=== PATIENT | female | born 1955 | race Two or more races ===

== ENCOUNTER 2017-10-04 06:27 | Day surgery (SDC) | payer MEDICARE, MEDICAID ==
[2017-10-04] MEDS ORDERED: ONDANSETRON 4 MG/2 ML VIAL IV ONE (06:28)
[2017-10-04] MEDS ORDERED: IV NORMAL SALINE 1000 ML BAG IV ONE (06:28)
[2017-10-04] MEDS ORDERED: FLURBIPROFEN 0.03% OPHT DROP 2.5 ML BOTTLE ONE (06:50)
[2017-10-04] MEDS ORDERED: TETRACAINE HCL 0.5% OPHT DROP 2 ML BOTTLE ONE ×2 (06:50→07:25)
[2017-10-04] MEDS ORDERED: CIPROFLOXACIN 0.3% OPHT DROP 2.5 ML BOTTLE ONE (06:50)
[2017-10-04] MEDS ORDERED: CYCLOPENTOLATE 1% OPHT DROP 2 ML BOTTLE ONE (06:50)
[2017-10-04] MEDS ORDERED: PHENYLEPHRINE 2.5% OPHT DROP 2 ML BOTTLE ONE (06:51)
[2017-10-04 07:11] LABS: *BILIRUBIN,URIN NEGATIVE (NEGATIVE); *BLOOD, URINE Trace-lysed (NEGATIVE); *CLARITY,URINE CLEAR (CLEAR); *COLOR,URINE YELLOW (YELLOW); *KETONES,URINE NEGATIVE (NEGATIVE); *PROTEIN,URINE NEGATIVE (NEGATIVE); *UROBILINOGEN,URINE 0.2 E.U./dl (NORMAL); LEUKOCYTE ESTERASE ,URINE NEGATIVE (NEGATIVE); NITRITE, URINE NEGATIVE (NEGATIVE); PH,URINE 5.5 (5.0-8.0); UGLUCOSE NEGATIVE (NEGATIVE)
[2017-10-04 07:16] LABS: BASOPHILS # (AUTO) 0.1 K/uL (0.0-8.0); BASOPHILS % (AUTO) 1.4 % (0.0-2.0); EOSINOPHILS # (AUTO) 0.2 K/uL (0.0-0.7); EOSINOPHILS % (AUTO) 2.1 % (0.0-7.0); HEMATOCRIT 41.8 % (31.2-41.9); HEMOGLOBIN 14.2 g/dL (10.9-14.3); LYMPHOCYTES # (AUTO) 3.4 K/uL (20.0-40.0); LYMPHOCYTES % (AUTO) 37.6 % (20.5-51.5); MEAN CORPUSCULAR HEMOGLOBIN 28.1 uug (24.7-32.8); MEAN CORPUSCULAR HGB CONC 34 g/dL (32.3-35.6); MONOCYTES # (AUTO) 0.7 K/uL (2.0-10.0); NEUTROPHILS # (AUTO) 4.6 K/uL (1.8-8.9); NEUTROPHILS % (AUTO) 50.9 % (38.5-71.5); PLATELET COUNT (AUTO) 285 K/uL (179-408); RED BLOOD CELL COUNT(AUTO) 5.04 MIL/uL (3.63-4.92); WHITE BLOOD COUNT (AUTO) 9.1 K/uL (3.8-11.8)
[2017-10-04 07:19] LABS: CREATININE 0.8 mg/dL (0.6-1.3); POTASSIUM 4.1 mmol/L (3.5-5.1)
[2017-10-04 07:22] LABS: BACTERIA,URINE MODERATE /HPF (NONE SEEN); RBC,URINE 0-3 /HPF (0-3); SQUAMOUS EPITHELIAL CELL,UR MODERATE /HPF (NONE SEEN); WBC,URINE 0-3 /HPF (0-3)
[2017-10-04] MEDS ORDERED: NEO/POLYMYX B/DEXAME OPHT OINT 3.5 GM TUBE ONE (07:25)
[2017-10-04] MEDS ORDERED: PILOCARPINE 1% OPHT DROP 15 ML BOTTLE ONE (07:25)
[2017-10-04] MEDS ORDERED: BALANCED SALT IRRIG SOLN COMB2 15 ML IRRIG.SOLN ONE (07:25)
[2017-10-04] MEDS ORDERED: LIDOCAINE HCL-MPF 1% 5 ML VIAL ONE (07:25)
[2017-10-04] MEDS ORDERED: EPINEPHRINE 1 MG/1 ML AMP ONE (07:25)
[2017-10-04] MEDS ORDERED: HYALURONATE SODIUM 8.5 MG/0.85 ML DISP.SYRIN ONE ×2 (07:26→09:13)
[2017-10-04] MEDS ORDERED: BUPIVACAINE PF 0.5% 30 ML VIAL ONE (07:26)
[2017-10-04] MEDS ORDERED: BALANCED SALT IRRIG SOLN COMB1 500 ML, EPINEPHRINE-PF 1:1000 1 MG IO ONE ×2 (08:00)
[2017-10-04] MEDS ORDERED: MIDAZOLAM HCL 2 MG/2 ML VIAL ONE ×2 (08:42→09:02)
[2017-10-04] MEDS ORDERED: FENTANYL CITRATE 100 MCG/2 ML AMPUL ONE (08:42)
[2017-10-04] MEDS ORDERED: ACETAMINOPHEN 325 MG TABLET ONE (09:55)
== END 2017-10-04 10:05 | disposition home or self-care (01) ==
LOC: DS 06:27
PROVIDERS: ATTEND Dermatology MOHS-Micrographic Surgery
DX: H25.89 Other age-related cataract (principal); I10 Essential (primary) hypertension; F41.9 Anxiety disorder, unspecified; F32.9 Major depressive disorder, single episode, unspecified; Z98.890 Other specified postprocedural states; Z90.49 Acquired absence of other specified parts of digestive tract; Z90.710 Acquired absence of both cervix and uterus
CPT/HCPCS: 36415; 66984; 71045; 80048; 81001; 85025; 85730; 93005; A4663; J0171 ×2; J2250 ×2; J2405; J3010; J3490 ×2; J3590; J7030 ×2; J7321 ×2; V2632

== ENCOUNTER 2017-10-18 06:09 | Day surgery (SDC) | payer MEDICARE, MEDICAID ==
[2017-10-18] MEDS ORDERED: LIDOCAINE-MPF 2% 5 ML VIAL MC ONE (06:10)
[2017-10-18] MEDS ORDERED: PROPOFOL 200 MG/20 ML BOTTLE IV ONE (06:10)
[2017-10-18] MEDS ORDERED: TETRACAINE HCL 0.5% OPHT DROP 2 ML BOTTLE ONE ×2 (06:36→07:29)
[2017-10-18] MEDS ORDERED: CIPROFLOXACIN 0.3% OPHT DROP 2.5 ML BOTTLE ONE (06:37)
[2017-10-18] MEDS ORDERED: FLURBIPROFEN 0.03% OPHT DROP 2.5 ML BOTTLE ONE (06:37)
[2017-10-18] MEDS ORDERED: CYCLOPENTOLATE 1% OPHT DROP 2 ML BOTTLE ONE (06:37)
[2017-10-18] MEDS ORDERED: PHENYLEPHRINE 2.5% OPHT DROP 2 ML BOTTLE ONE (06:37)
[2017-10-18] MEDS ORDERED: BALANCED SALT IRRIG SOLN COMB1 500 ML, EPINEPHRINE-PF 1:1000 1 MG IO ONE ×2 (07:00)
[2017-10-18 07:02] LABS: BASOPHILS # (AUTO) 0.1 K/uL (0.0-8.0); EOSINOPHILS # (AUTO) 0.2 K/uL (0.0-0.7); EOSINOPHILS % (AUTO) 2.1 % (0.0-7.0); HEMATOCRIT 39.7 % (31.2-41.9); HEMOGLOBIN 13.2 g/dL (10.9-14.3); LYMPHOCYTES # (AUTO) 2.6 K/uL (20.0-40.0); LYMPHOCYTES % (AUTO) 34.6 % (20.5-51.5); MEAN CORPUSCULAR HEMOGLOBIN 27.8 uug (24.7-32.8); MEAN CORPUSCULAR HGB CONC 33 g/dL (32.3-35.6); MEAN CORPUSCULAR VOLUME 83.5 fL (75.5-95.3); MONOCYTES # (AUTO) 0.6 K/uL (2.0-10.0); MONOCYTES % (AUTO) 7.6 % (0.0-11.0); NEUTROPHILS # (AUTO) 4.2 K/uL (1.8-8.9); NEUTROPHILS % (AUTO) 54.7 % (38.5-71.5); PLATELET COUNT (AUTO) 286 K/uL (179-408); RED BLOOD CELL COUNT(AUTO) 4.76 MIL/uL (3.63-4.92); WHITE BLOOD COUNT (AUTO) 7.6 K/uL (3.8-11.8)
[2017-10-18 07:03] LABS: *BILIRUBIN,URIN NEGATIVE (NEGATIVE); *BLOOD, URINE 1+ (NEGATIVE); *CLARITY,URINE CLEAR (CLEAR); *COLOR,URINE YELLOW (YELLOW); *KETONES,URINE NEGATIVE (NEGATIVE); *PROTEIN,URINE NEGATIVE (NEGATIVE); *UROBILINOGEN,URINE 0.2 E.U./dl (NORMAL); LEUKOCYTE ESTERASE ,URINE NEGATIVE (NEGATIVE); NITRITE, URINE NEGATIVE (NEGATIVE); PH,URINE 5.5 (5.0-8.0); UGLUCOSE NEGATIVE (NEGATIVE)
[2017-10-18 07:12] LABS: BACTERIA,URINE FEW /HPF (NONE SEEN); CREATININE 0.7 mg/dL (0.6-1.3); SQUAMOUS EPITHELIAL CELL,UR MODERATE /HPF (NONE SEEN); WBC,URINE 0-3 /HPF (0-3)
[2017-10-18] MEDS ORDERED: PILOCARPINE 1% OPHT DROP 15 ML BOTTLE ONE (07:29)
[2017-10-18] MEDS ORDERED: EPINEPHRINE 1 MG/1 ML AMP ONE (07:29)
[2017-10-18] MEDS ORDERED: NEO/POLYMYX B/DEXAME OPHT OINT 3.5 GM TUBE ONE (07:29)
[2017-10-18] MEDS ORDERED: LIDOCAINE HCL-MPF 1% 5 ML VIAL ONE (07:29)
[2017-10-18] MEDS ORDERED: BALANCED SALT IRRIG SOLN COMB2 15 ML IRRIG.SOLN ONE (07:30)
[2017-10-18] MEDS ORDERED: BUPIVACAINE PF 0.5% 30 ML VIAL ONE (07:30)
[2017-10-18] MEDS ORDERED: HYALURONATE SODIUM 8.5 MG/0.85 ML DISP.SYRIN ONE ×2 (07:30→09:03)
[2017-10-18] MEDS ORDERED: MIDAZOLAM HCL 2 MG/2 ML VIAL ONE (08:11)
[2017-10-18] MEDS ORDERED: ACETAMINOPHEN 325 MG TABLET ONE (09:53)
== END 2017-10-18 10:00 | disposition home or self-care (01) ==
LOC: DS 06:09
PROVIDERS: ATTEND Dermatology MOHS-Micrographic Surgery
DX: H25.89 Other age-related cataract (principal); I10 Essential (primary) hypertension
CPT/HCPCS: 36415; 66984; 80048; 81001; 85025; 85730; A4663; J0171 ×2; J2250; J3490 ×4; J3590; J7120; J7321 ×2; V2632

== ENCOUNTER 2018-05-08 18:36 | Emergency (ER) | payer MEDICARE, MEDICAID ==
[~2018-05-08] VITALS: Ht 157.5 cm; Wt 79.4 kg
--- NOTE | 2018-05-08 18:59 | NUR ---
X-ray done, pending disposition, SBAR to DAVID Perkins
[2018-05-08] MEDS ORDERED: NAPROXEN 500 MG TABLET PO ONE (19:00)
[2018-05-08] MEDS ORDERED: NAPROXEN 500 MG TABLET ONE (19:02)
[2018-05-08 19:31] VITALS: BP 128/97
--- NOTE | 2018-05-08 19:37 | NUR ---
Patient discharged to home in stable conditon. Written and verbal after care instructions given. Patient verbalizes understanding of instructions. walked out of ER with no distress noted
== END 2018-05-08 19:40 | disposition home or self-care (01) ==
LOC: ER 18:40
DX: S90.32XA Contusion of left foot, initial encounter (principal); I10 Essential (primary) hypertension; W20.8XXA Other cause of strike by thrown, projected or falling object, initial encounter; Y93.89 Activity, other specified; Y92.89 Other specified places as the place of occurrence of the external cause; Y99.8 Other external cause status
CPT/HCPCS: 73630; A4663

== ENCOUNTER 2020-10-30 14:30 | Emergency (ER) | payer MEDICARE, OTHER ==
[~2020-10-30] VITALS: Ht 157.5 cm; Wt 77.1 kg
[2020-10-30] MEDS ORDERED: HYDR-4209 PO (15:09)
[2020-10-30 15:34] VITALS: BP 122/78
== END 2020-10-30 15:36 | disposition home or self-care (01) ==
LOC: ER 14:30
DX: S92.352A Displaced fracture of fifth metatarsal bone, left foot, initial encounter for closed fracture (principal); W01.0XXA Fall on same level from slipping, tripping and stumbling without subsequent striking against object, initial encounter; Y92.89 Other specified places as the place of occurrence of the external cause; I10 Essential (primary) hypertension
CPT/HCPCS: 73630; A4663

== ENCOUNTER 2021-12-12 13:06 | Emergency (ER) | payer MEDICARE, OTHER ==
[~2021-12-12] VITALS: Ht 157.5 cm; Wt 74.8 kg
[~2021-12-12 13:06] MED LIST: HYDR-4209 PO
--- NOTE | 2021-12-12 13:30 | NUR ---
Patient is in room 5.
[2021-12-12] MEDS ORDERED: ACETAMINOPHEN 325 MG TABLET PO ONE (14:00)
[2021-12-12] MEDS ORDERED: ACETAMINOPHEN 325 MG TABLET ONE (14:12)
--- NOTE | 2021-12-12 16:24 | NUR ---
Patient states pain has diminished . DC and follow up instructions given and explained to patient who states she understands all instructions
== END 2021-12-12 16:26 | disposition home or self-care (01) ==
LOC: ER 13:12
DX: M79.89 Other specified soft tissue disorders (principal); I10 Essential (primary) hypertension; Z86.59 Personal history of other mental and behavioral disorders
CPT/HCPCS: A4663

== ENCOUNTER → 2022-09-16 | Emergency (ER) | payer MEDICARE, OTHER | END | disposition left against medical advice (07) | LOC: ER 16:11 | DX: Z53.21 Procedure and treatment not carried out due to patient leaving prior to being seen by health care provider (principal) ==